=== PATIENT | male | born 1975 | race Caucasian/White ===

== ENCOUNTER 2019-07-14 11:52 | Emergency (ER) | payer BC, OTHER ==
[2019-07-14] MEDS ORDERED: LORazepam 1 MG Tab PO ONE (12:54)
--- NOTE | 2019-07-14 13:11 | EDM.PDOC ---
ED HPI GENERAL MEDICAL PROBLEM - General Chief Complaint: General Stated Complaint: dizzy for a couple hours Time Seen by Provider: 07/14/19 11:55 Source of Information: Reports: Patient History Limitations: Reports: No Limitations - History of Present Illness INITIAL COMMENTS - FREE TEXT/NARRATIVE: HISTORY OF PRESENT ILLNESS: Patient is a 44 year old male who states he woke up this morning and was confused as to where he was. He was having palpitations , dizziness, shaking to his hands and feeling of anxiety. Dizziness described as lightheadedness. Is unsure if there is any change in symptoms with head movement. No neck stiffness or rash. Denies any cp or dyspnea. No weakness/ numbness. No changes in speech/vision. Was drinking yesterday, denies any drug use. No SI/HI/hallucinations. No recent trauma/falls. No fever/chills. Denies melena/hematochezia. Does not think he took his BP medication today. Has not eaten since yesterday. REVIEW OF SYSTEMS: Other than the symptoms associated with the present events, the following is reported with regard to recent health: General: (-) fever. HENT: (-) congestion. Respiratory: (-) cough. Cardiovascular: (-) chest pain. GI: (-) abdominal pain. : (-) urinary complaints. Musculoskeletal: (-) other aches or pains. Endocrine: (+) generalized weakness. Neurological: (-) localized weakness. Skin: (-) rash PAST MEDICAL HISTORY: reviewed as per nursing notes SOCIAL HISTORY: reviewed as per nursing notes, MEDICATIONS: Per nurse's note ALLERGIES: Per nurse's note, reviewed by me PHYSICAL EXAMINATION: GENERALIZED APPEARANCE: well developed, well nourished anxious appearing VITAL SIGNS: Per nurse's note, reviewed by me SKIN: Warm, dry; (-) cyanosis; (-) rash. HEAD: (-) scalp swelling, (-) tenderness. EYES: (-) conjunctival pallor, (-) scleral icterus. EOMI. PERRL. visual hein intact ENMT: (-) stridor; mucous membranes moist. NECK: (-) tenderness, (-) stiffness, CHEST AND RESPIRATORY: (-) rales, (-) rhonchi, (-) wheezes; breath sounds equal bilaterally. HEART AND CARDIOVASCULAR: (-) irregularity; (-) murmur, (-) gallop. ABDOMEN AND GI: Soft; (-) tenderness, (-) guarding, (-) rebound, (-) palpable masses, EXTREMITIES: (-) deformity, (-) edema. NEURO AND PSYCH: Alert. oriented x 4. Cranial nerves grossly intact; strength symmetric. gait steady. NIHSS 0. nml cerebellar. 2+ DTR. sensation intact. no facial droop. nml speech. no neglect. DIAGNOSTICS: CTH: read by radiologist, reviewed by myself EKG: nsr at [address] bpm. n[address]. no [address] elevation. t wave inverion iii, avf. Labs ordered and reviewed. EMERGENCY DEPARTMENT COURSE AND TREATMENT: Patient's condition remained stable during Emergency Department evaluation. Based on history, physical exam, and diagnostic evaluation, the etiology of patients symptoms is unclear. The physical exam was unremarkable including a normal neurologic exam. Diagnostic workup was unremarkable. Based on this evaluation I believe there is low probability of neurologic, cardiac, hemorrhagic, metabolic or infectious etiology of the patients symptoms. He denies depression/SI. Appears calm after Ativan. Prior to discharge the patient was observed to ambulate in the ED without difficulty. I felt that outpatient management with close followup by the patient's primary care provider in 1-2 days was appropriate. The patient's questions were answered, and discharge precautions and reasons to return to the ED were discussed. PLAN AND FOLLOW-UP: Patient received written and verbal instructions regarding this condition. Return to ED immediately with any new or worsening symptoms. Follow up to be arranged by patient with pcp in 1-2 days for further evaluation. Given discharge precautions. Patient expressed verbal understanding. - Related Data Allergies Allergy/AdvReac Type Severity Reaction Status Date / Time penicillin Allergy Hives Verified 07/14/19 12:26 Home Meds: Home Meds Metoprolol Succinate [Toprol XL] 50 mg PO DAILY 01/27/15 [History] amLODIPine [Norvasc] 5 mg PO DAILY 01/27/15 [History] LORazepam [Ativan] 1 mg PO BID #2 tablet 07/14/19 [Rx] Past Medical History Gastrointestinal History: Reports: Pancreatitis Psychiatric History: Reports: Anxiety, Panic Attack - Infectious Disease History Infectious Disease History: Reports: Chicken Pox - Past Surgical History GI Surgical History: Reports: Cholecystectomy Social & Family History - Family History Family Medical History: Noncontributory - Tobacco Use Smoking Status *Q: Current Every Day Smoker Years of Tobacco use: 25 Packs/Tins Daily: 1 - Caffeine Use Caffeine Use: Reports: None - Recreational Drug Use Recreational Drug Use: No ED ROS GENERAL - Review of Systems Review Of Systems: See Below (see dictation) ED EXAM, GENERAL - Physical Exam Exam: See Below (see dictation) Course - Vital Signs Last Recorded V/S: Last Vital Signs Temp 98 F 07/14/19 12:27 Pulse 84 07/14/19 15:17 Resp 18 07/14/19 15:17 BP 163/105 H 07/14/19 15:17 Pulse Ox 98 07/14/19 15:17 - Orders/Labs/Meds Orders: Active Orders 24 hr Category Date Time Status EKG Documentation Completion [RC] STAT Care 07/14/19 12:25 Active Vital Signs [RC] PER UNIT ROUTINE Care 07/14/19 12:25 Active Labs: Laboratory Tests 07/14/19 07/14/19 07/14/19 Range/Units 12:59 12:59 14:20 WBC 10.59 (4.0-11.0) K/uL RBC 5.30 (4.50-5.90) M/uL Hgb 17.7 H (13.0-17.0) g/dL Hct 49.0 (38.0-50.0) % MCV 92.5 (80.0-98.0) fL MCH 33.4 H (27.0-32.0) pg MCHC 36.1 (31.0-37.0) g/dL RDW Std Deviation 44.0 (28.0-62.0) fl RDW Coeff of Leigh 13 (11.0-15.0) % Plt Count 199 (150-400) K/uL MPV 10.40 (7.40-12.00) fL Neut % (Auto) 72.5 (48.0-80.0) % Lymph % (Auto) 17.5 (16.0-40.0) % [place] % (Auto) 8.9 (0.0-15.0) % Eos % (Auto) 0.8 (0.0-7.0) % Baso % (Auto) 0.3 (0.0-1.5) % Neut # (Auto) 7.7 H (1.4-5.7) K/uL Lymph # (Auto) 1.9 (0.6-2.4) K/uL [place] # (Auto) 0.9 H (0.0-0.8) K/uL Eos # (Auto) 0.1 (0.0-0.7) K/uL Baso # (Auto) 0.0 (0.0-0.1) K/uL Nucleated RBC % 0.0 /100WBC Nucleated RBCs # 0 K/uL Sodium 140 (136-148) mmol/L Potassium 3.7 (3.5-5.1) mmol/L Chloride 102 (98-107) mmol/L Carbon Dioxide 25.9 (21.0-32.0) mmol/L BUN 9 (7.0-18.0) mg/dL Creatinine 0.8 (0.8-1.3) mg/dL Est Cr Clr Drug Dosing 125.50 mL/min Estimated GFR (MDRD) > 60.0 ml/min Glucose 124 H (74-106) mg/dL Calcium 9.0 (8.5-10.1) mg/dL Total Bilirubin 0.6 (0.2-1.0) mg/dL AST 53 H (15-37) IU/L ALT 83 H (14-63) IU/L Alkaline Phosphatase 121 H (46-116) U/L Troponin I < 0.050 (0.000-0.056) ng/mL Total Protein 7.6 (6.4-8.2) g/dL Albumin 4.3 (3.4-5.0) g/dL Globulin 3.3 (2.6-4.0) g/dL Albumin/Globulin Ratio 1.3 (0.9-1.6) Urine Opiates Screen NEGATIVE (NEGATIVE) Ur Oxycodone Screen NEGATIVE (NEGATIVE) Urine Methadone Screen NEGATIVE (NEGATIVE) Ur Barbiturates Screen NEGATIVE (NEGATIVE) Ur Phencyclidine Scrn NEGATIVE (NEGATIVE) Ur Amphetamine Screen NEGATIVE (NEGATIVE) U Methamphetamines Scrn NEGATIVE (NEGATIVE) U Benzodiazepines Scrn NEGATIVE (NEGATIVE) U Cocaine Metab Screen NEGATIVE (NEGATIVE) U Marijuana (THC) Screen POSITIVE (NEGATIVE) Meds: Medications Discontinued Medications Generic Name Dose Route Start Last Admin Trade Name Freq PRN Reason Stop Dose Admin Lorazepam 1 mg 07/14/19 12:54 07/14/19 13:20 Ativan PO 07/14/19 12:55 1 mg ONETIME ONE Administration Departure - Departure Time of Disposition: 14:54 Disposition: Home, Self-Care 01 Condition: Good Clinical Impression: Anxiety, Dizziness - Discharge Information *PRESCRIPTION DRUG MONITORING PROGRAM REVIEWED*: Not Applicable *COPY OF PRESCRIPTION DRUG MONITORING REPORT IN PATIENT GUERITA: Not Applicable Prescriptions: LORazepam [Ativan] 1 mg PO BID #2 tablet Instructions: Panic Attack, Dizziness Referrals: Kana Carrillo [Ordering Only Provider] - 1 Day Forms: ED Department Discharge Additional Instructions: The following information is given to patients seen in the emergency department who are being discharged to home. This information is to outline your options for follow-up care. We provide all patients seen in our emergency department with a follow-up referral. The need for follow-up, as well as the timing and circumstances, are variable depending upon the specifics of your emergency department visit. If you don't have a primary care physician on staff, we will provide you with a referral. We always advise you to contact your personal physician following an emergency department visit to inform them of the circumstance of the visit and for follow-up with them and/or the need for any referrals to a consulting specialist. The emergency department will also refer you to a specialist when appropriate. This referral assures that you have the opportunity for follow-up care with a specialist. All of these measure are taken in an effort to provide you with optimal care, which includes your follow-up. Under all circumstances we always encourage you to contact your private physician who remains a resource for coordinating your care. When calling for follow-up care, please make the office aware that this follow-up is from your recent emergency room visit. If for any reason you are refused follow-up, please contact the [facility] Emergency Department at and asked to speak to the emergency department charge nurse. Sepsis Event Note - Evaluation Sepsis Screening Result: No Definite Risk - Focused Exam Vital Signs: Vital Signs Temp Pulse Resp BP Pulse Ox 07/14/19 15:17 84 18 163/105 H 98 07/14/19 12:27 98 F 92 16 173/102 H 96 Date Exam was Performed: 07/14/19 Time Exam was Performed: 15:41 - My Orders Last 24 Hours: My Active Orders 07/14/19 12:25 EKG Documentation Completion [RC] STAT Vital Signs [RC] PER UNIT ROUTINE - Assessment/Plan Last 24 Hours: My Active Orders 07/14/19 12:25 EKG Documentation Completion [RC] STAT Vital Signs [RC] PER UNIT ROUTINE
--- NOTE | 2019-07-14 13:39 | CT ---
Head CT Technique: Multiple axial sections through the brain were obtained. Intravenous contrast was not utilized. Comparison: No prior intracranial imaging is available. Findings: Ventricles along with basal cisterns and sulci over the convexities appear within normal limits for the patient's age. No abnormal parenchymal densities are seen. No evidence of intracranial hemorrhage. No midline shift or mass-effect is seen. Bone window settings were reviewed which shows no acute calvarial abnormality. Visualized mastoid sinuses are clear. Small old appearing fracture is noted within the medial right orbital wall with some adjacent mucosal thickening within the ethmoid sinus. No acute paranasal sinus findings are otherwise seen within the visualized sinuses. Impression: 1. Old finding within the medial right orbital wall as noted above. 2. No acute intracranial abnormality is appreciated. Diagnostic code #2 This report was dictated in [place] Standard Time
[2019-07-14 14:06] LABS: BLOOD UREA NITROGEN,BUN 9 mg/dL (7.0-18.0); CARBON DIOXIDE,CO2 25.9 mmol/L (21.0-32.0); CHLORIDE,CL 102 mmol/L (98-107); GLUCOSE RANDOM 124 mg/dL (74-106); POTASSIUM,K 3.7 mmol/L (3.5-5.1); SODIUM,NA 140 mmol/L (136-148)
[2019-07-14 15:17] VITALS: BP 163/105; PULSE 84
== END 2019-07-14 15:18 | disposition home or self-care (01) ==
LOC: MW.ED 11:52
DX: F41.9 Anxiety disorder, unspecified (principal); R42 Dizziness and giddiness; F17.210 Nicotine dependence, cigarettes, uncomplicated; Z88.0 Allergy status to penicillin; Z79.899 Other long term (current) drug therapy
CPT/HCPCS: 36415; 70450; 80053; 80305; 84484; 85025; 93005; 99284; A9270